=== PATIENT | male | born 1995 | race Asian ===

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

== ENCOUNTER 2018-08-10 20:56 | Emergency (ER) | payer OTHER ==
[~2018-08-10] VITALS: Ht 185.4 cm; Wt 61.2 kg
[2018-08-10 21:05] VITALS: TEMP 99
[2018-08-10 23:50] VITALS: BP 110/42
== END 2018-08-10 23:51 | disposition home or self-care (01) ==
LOC: ED 20:56
DX: S00.83XA Contusion of other part of head, initial encounter (principal); M79.605 Pain in left leg; S89.92XA Unspecified injury of left lower leg, initial encounter; S01.511A Laceration without foreign body of lip, initial encounter; Y04.0XXA Assault by unarmed brawl or fight, initial encounter
CPT/HCPCS: 99282